=== PATIENT | female | born 1980 | race Caucasian/White ===

== ENCOUNTER 2021-06-27 12:21 | Emergency (ER) | payer BC, SELFPAY ==
--- NOTE | ~2021-06-27 | XR_ITS ---
EXAMINATION: XR forearm LT 2V, XR wrist LT min 3V DATE: 06/27/2021 13:46 INDICATION: Left wrist and forearm pain. TECHNIQUE: 1. AP an lateral views of the left forearm were obtained. Line 2. Dorsal palmar, lateral, oblique and ulnar deviated views of the left wrist were obtained. COMPARISON: none FINDINGS: Bone alignment is normal. No fracture. Joint spaces are normal. No erosions. Soft tissues are unremar kable. IMPRESSION: 1. Negative left wrist and forearm radiographs. Reviewed, dictated and finalized at location A. IMPRESSION: 1. Negative left wrist and forearm radiographs.
[2021-06-27 12:23] VITALS: BP 229/117; PULSE 81; RESP 18; TEMP 36.5; O2SAT 95
--- NOTE | 2021-06-27 13:44 | ED.GENADULT ---
HPI - General Adult General Chief complaint: Extremity Injury, Upper Stated complaint: left wrist pain Time Seen by Provider: 06/27/21 12:53 Source: patient and RN notes reviewed Mode of arrival: ambulatory History of Present Illness HPI narrative: 40-year-old female presented to the emergency department for evaluation of left wrist and left arm pain. Patient states while she was sleeping last night she believes her arm became entrapped in her headboard. When she woke up to use the restroom in the night she states she pulled out her arm and felt that she injured it. Patient does complain of increased pain with flexion and extension of the wrist. Patient does have some increased edema of the left hand. Patient denies any numbness or weakness. Patient has no wrist drop. Patient has strong adult day care worker of the left hand but believes it is worsened secondary to pain. Related Data Home Medications Medication Instructions Recorded Confirmed No Home Medications 06/27/21 Allergies Allergy/AdvReac Type Severity Reaction Status Date / Time penicillin V Allergy Other Verified 06/27/21 12:26 Review of Systems Review of Systems: CONSTITUTIONAL: Denies fever, chills, or sweats. EYES: Denies visual changes, redness, or discharge. ENT: Denies rhinorrhea, congestion, sore throat, or otalgia. CARDIOVASCULAR: Denies chest pain, palpitations, or edema. RESPIRATORY: Denies cough or dyspnea. GASTROINTESTINAL: Denies abdominal pain, nausea, vomiting, or diarrhea. GENITOURINARY: Denies dysuria or hematuria. SKIN: Denies rash or itching. MUSCULOSKELETAL: See HPI NEUROLOGIC: Denies headache, numbness, or weakness. Exam Narrative: APPEARANCE: Well appearing, no pain, no distress, well-nourished. HEAD: normocephalic, atraumatic. EYES: PERRLA/EOMI, conjunctivae clear. NOSE: Normal no drainage RESPIRATORY: Airway patent, respirations nonlabored. Clear to auscultation bilaterally, no rales, rhonchi, wheezing. CARDIOVASCULAR: Regular rate and rhythm without murmurs rubs or gallops. MUSCULOSKELETAL: Left wrist tenderness to palpation. Normal range of motion. Pulses intact. Normal cap refill. Neurologically intact. No wrist drop. NEURO: Alert. Cranial nerves II through XII intact. Grossly intact SKIN: Warm, dry. Normal Color Course Course Emergency Course: X-ray showed no acute fracture or dislocation. Patient was updated on the results of the x-rays and plan for treatment at home. Vital Signs Vital signs: Vital Signs Temperature 97.7 F 06/27/21 12:23 Pulse Rate 81 06/27/21 12:23 Respiratory Rate 18 06/27/21 12:23 Blood Pressure 229/117 H 06/27/21 12:23 Pulse Oximetry 95 06/27/21 12:23 Temperature 97.7 F 06/27/21 12:23 Pulse Rate 81 06/27/21 12:23 Respiratory Rate 18 06/27/21 12:23 Blood Pressure 229/117 H 06/27/21 12:23 Pulse Oximetry 95 06/27/21 12:23 Medical Decision Making Vital Signs Vital Signs: Vital Signs Temperature 97.7 F 06/27/21 12:23 Pulse Rate 81 06/27/21 12:23 Respiratory Rate 18 06/27/21 12:23 Blood Pressure 229/117 H 06/27/21 12:23 Pulse Oximetry 95 06/27/21 12:23 Temperature 97.7 F 06/27/21 12:23 Pulse Rate 81 06/27/21 12:23 Respiratory Rate 18 06/27/21 12:23 Blood Pressure 229/117 H 06/27/21 12:23 Pulse Oximetry 95 06/27/21 12:23 Imaging Data Radiologist's impression: Impressions Forearm X-Ray 06/27/21 13:56 IMPRESSION: 1. Negative left wrist and forearm radiographs. Wrist X-Ray 06/27/21 13:56 IMPRESSION: 1. Negative left wrist and forearm radiographs. Discharge Plan Discharge Clinical Impression: Arm contusion Patient Disposition: Home, Self-Care Condition: Stable Instructions: Antibiotic Form, Arm Pain (ED) Additional Instructions: Tylenol and ibuprofen for pain control. Have close follow-up with your primary care physician. If you have any worsening symptoms then please call or return to the
[2021-06-27] MEDS: HYDROcodone/acetaminophen (*CRX) 5-325 MG TABLET 1 TAB PO (15:25)
== END 2021-06-27 15:26 | disposition home or self-care (01) ==
PROVIDERS: Emergency Provider Emergency Medicine
DX: S60.212A Contusion of left wrist, initial encounter (principal); W23.1XXA Caught, crushed, jammed, or pinched between stationary objects, initial encounter
CPT/HCPCS: 73090; 73110; 99283; A9270

== ENCOUNTER 2022-10-01 11:26 | Observation (INO) | payer BC, SELFPAY ==
[2022-10-01] VITALS (17 sets, daily range): BP systolic 108–161; BP diastolic 56–94; PULSE 77–92; RESP 16–22; TEMP 36.4–37.2; O2SAT 99–100; BMI 34.0
--- NOTE | ~2022-10-01 | US_ITS ---
EXAMINATION: US pelvic complete w TV DATE: 10/01/2022 16:14 INDICATION: Heavy vaginal bleeding Comparison:No prior studies for comparison. TECHNIQUE: Multiple transabdominal and endovaginal sonographic images of the pelvis performed. FINDINGS: The uterus measures 7.4 x 6 cm. The endometrial complex measures 1.6 cm. The right ovary measures 2.9 x 2.1 x 2.8 cm and the left ovary measures 2.8 x 1.9 x 3 cm. There are small follicles in each ovary. Normal doppler signal in both ovaries. There is no free fluid in the pelvis. There are no abnormal masses seen on either side. IMPRESSION: 1. Endometrial thickening measuring 1.6 cm. Reviewed, dictated and finalized at location A.
[2022-10-01 11:40] LABS: Basophils Absolute Auto 0.1 K/mm3 (0.0-0.1); Basophils Percent Auto 0.4 % (0.2-1.2); Eosinophils Absolute Auto 0.2 K/mm3 (0-0.3); Eosinophils Percent Auto 1.7 % (0-4.4); Immature Granulocyte Absolute 0.11 K/mm3 (0.00-0.031); Lymphocytes Absolute Auto 4.14 K/mm3 (0.9-3.2); Lymphocytes Percent Auto 36.2 % (18.3-44.2); Mean Corpuscular HGB Conc 32.8 g/dl (32-36); Mean Corpuscular Hemoglobin 31.1 pg (26-34); Mean Corpuscular Volume 94.9 fl (80-100); Mean Platelet Volume 9.7 fl (7.4-10.4); Monocytes Absolute Auto 0.9 K/mm3 (0.1-0.6); Monocytes Percent Auto 7.6 % (2.6-8.5); Neutrophils Absolute Auto 6.1 K/mm3 (1.3-6.7); Neutrophils Percent Auto 53.1 % (45.5-73.1); Nucleated Red Blood Cells Perc 0.2 % (0.0-0.2); Platelet Count Result 404 k/mm3 (150-375); Red Blood Count 1.96 M/mm3 (4.2-5.4); Red Cell Distribution Width 14.8 % (11.5-14.5); White Blood Count 11.4 K/mm3 (4.5-10.0)
[2022-10-01 11:51] LABS: Alanine Aminotransferase 22 U/L (6-35); Albumin Level 3.6 g/dL (3.5-5.1); Alkaline Phosphatase 62 U/L (38-126); Anion Gap 7 mmol/L (8-16); Aspartate Amino Transferase 22 U/L (14-36); Bilirubin,Total 0.1 mg/dL (0.2-1.3); Blood Urea Nitrogen 8 mg/dL (7-17); Calcium 8.8 mg/dL (8.4-10.2); Carbon Dioxide 20 mmol/L (22-30); Chloride 109 mmol/L (98-107); Estimated CRCL calculation 110 ml/min; Estimated Glomerular Filt Rate > 60; Glucose 102 mg/dL (65-110); Potassium 3.2 mmol/L (3.4-5.0); Sodium 136 mmol/L (137-145)
[2022-10-01 11:52] LABS: Hemoglobin 6.1 g/dL (12.0-15.0)
[2022-10-01 11:53] LABS: Hematocrit 18.6 % (37.0-47.0)
[2022-10-01 11:55] LABS: Anisocytosis 1+ (NORMAL); Hypochromasia 1+ (NORMAL); Microcytosis 1+ (NORMAL); Platelet Estimate Increased (Adequate); Schistocytes None Seen (NORMAL)
--- NOTE | 2022-10-01 12:25 | ED.FEMALEGU ---
HPI - Female Genitourinary General Chief complaint: Vaginal Bleeding Stated complaint: vag bleed Time Seen by Provider: 10/01/22 12:20 Source: patient and family Mode of arrival: ambulatory Limitations: no limitations History of Present Illness HPI Narrative: 41 years old white female presented to the ED with 12 days of heavy vaginal bleeding. Associated with dizziness, intermittent blackout, numbness of the toes and fingers. Was seen [facility] days ago at [facility] for the same complaint and was discharged home at that time. Patient does not remember what was the instruction. History of hypertension and tobacco dependence. She Denies Drinking she uses marijuana daily. Currently her main complaint is numbness of the toes and fingers history of bilateral tubal ligation 25 years ago, section x2, appendectomy, her. Her periosd is 10 okay thank you been irregular in the last few months. Related Data Home Medications Medication Instructions Recorded Confirmed No Home Medications 06/27/21 Allergies Allergy/AdvReac Type Severity Reaction Status Date / Time No Known Allergies Allergy Verified 10/01/22 11:31 Exam : Speculum Exam - Vagina: normal appearance of the vagina and vaginal bleeding (No blood clots, 2 saturated long Q-tip were enough to dry the whole vaginal) Speculum Exam - Cervix: normal appearance of the cervix and Cervical os closed Course Consultations Consultation #1: Dr. Coburn 2 units of blood transfusion, Provera 10 mg twice daily Date: 10/01/22 Time: 14:55 Vital Signs Vital signs: Vital Signs Temperature 36.8 C 10/01/22 11:25 Pulse Rate 86 10/01/22 11:25 Respiratory Rate 18 10/01/22 11:25 Blood Pressure 108/56 L 10/01/22 11:25 Pulse Oximetry 100 10/01/22 11:25 Oxygen Delivery Room Air 10/01/22 11:25 Temperature 36.8 C 10/01/22 11:25 Pulse Rate 86 10/01/22 11:25 Respiratory Rate 18 10/01/22 11:25 Blood Pressure 108/56 L 10/01/22 11:25 Pulse Oximetry 100 10/01/22 11:25 Oxygen Delivery Room Air 10/01/22 11:25 MDM - Female Genitourinary MDM Narrative Medical decision making narrative: Syncope is patient presents with heavy vaginal bleeding and blood clot over the last 12 days, intermittent lightheadedness and syncope. History of section x2, bilateral tubal ligation. Physical exam was significant for pale skin Differential diagnosis dysfunctional uterine bleeding, miscarriage and anemia. Work-up today include CBC, CMP, urine showed hemoglobin of 6.1, potassium of 3.2 Dr. Coburn/the [employer] on-call requested Provera 10 mg twice a day and 2 units of blood transfusion Differential Diagnosis Differential diagnosis: Likely other (Dysfunctional uterine bleeding, anemia, miscarriage) Medical Records Attestation: I reviewed the patient's medical records. Lab Data Attestation: I reviewed the patient's lab results. 10/01/22 11:32 10/01/22 11:32 Labs: Lab Results 10/01/22 Range/Units 11:32 WBC 11.4 H (4.5-10.0) K/mm3 RBC 1.96 L (4.2-5.4) M/mm3 Hgb 6.1 L* (12.0-15.0) g/dL Hct 18.6 L* (37.0-47.0) % MCV 94.9 (80-100) fl MCH 31.1 (26-34) pg MCHC 32.8 (32-36) g/dl RDW 14.8 H (11.5-14.5) % Plt Count 404 H (150-375) k/mm3 MPV 9.7 (7.4-10.4) fl Immature Gran % (Auto) 1.0 H (0-0.5) % Neut % (Auto) 53.1 (45.5-73.1) % Lymph % (Auto) 36.2 (18.3-44.2) % [place] % (Auto) 7.6 (2.6-8.5) % Eos % (Auto) 1.7 (0-4.4) % Baso % (Auto) 0.4 (0.2-1.2) % Lymph # (Auto) 4.14 H (0.9-3.2) K/mm3 [place] # (Auto) 0.9 H (0.1-0.6) K/mm3 Eos # (Auto) 0.2 (0-0.3) K/mm3 Baso # (Auto) 0.1 (0.0-0.1) K/mm3 Abs Immat Gran (auto) 0.11 H (0.00-0.031) K/mm3 Absolute Neuts (auto) 6.1 (1.3-6.7) K/mm3 Absolute Nucleated RBC 0.0 (0.0-0.012) K/mm3 Nucleated RBC % 0.2 (0.0-0.2) % Platelet Estimate Increased (Adequate) Hypochromasia 1+ (NORMAL) Anisocytosis 1+ (NORM
[2022-10-01] MEDS: SODIUM CHLORIDE 0.9% IV 1,000 ML 999 ML IV CONT ×2 (12:46→14:08)
[2022-10-01] MEDS: SODIUM CHLORIDE 0.9% IV 250 ML 30 ML IV CONT (16:02)
[2022-10-01 16:27] LABS: Bacteria Urine None Seen /hpf; Need Manual Microscopic Reviewed; RBC Urine >100 /hpf (0-2); Squamous Epithelial Cell Urine None seen /hpf (Few)
[2022-10-01 16:30] LABS: Appearance Urine Slightly Cloudy (Clear); Bilirubin Urine Negative (Negative); Blood Urine 3+ (Negative); Color Urine Amber (Yellow); Glucose Urine UA Negative (Negative); Ketones Urine Negative (Negative); Leukocyte Esterase Ur Trace LEU/UL (Negative); Nitrate Urine Negative (Negative); Protein Urine 2+ mg/dL (Negative); Specific Grav Ur 1.015 (1.001-1.035); Urobilinogen Urine 0.2 mg/dL (<2.0)
[2022-10-01 16:33] LABS: Add Urine Microscopic? YES
[2022-10-01 16:44] LABS: Pregnancy On Board Control Positive; Urine Pregnancy Test Negative
--- NOTE | 2022-10-01 17:03 | PM.IMHP ---
H&P: HPI History of Present Illness Date/Time: 10/01/22 17:03 Chief Complaint: heavy vaginal bleeding Narrative: Linda is a 41yo P2003, LMP 09/23/22 who presented to the ER with multiple days of heavy vaginal bleeding. She reports her periods occur almost every other month. She reports one month they may be light and only 2-3 days, then the next month will be heavier. But she has never had any cycles as heavy as this one. She reports it has been heavy since the and she has been passing large clots as big as her fist. She reprots feeling terrible all week, but has children and sick mother to care for. She reports significant hot flashes and thought the bleeding was normal and likely bubba-menopausal. She denies any pain with this bleedign. She has a h/o and BTL. She was found to be severely anemic with hemoglobin of 6 in the ER. She feels tired, dizzy, weak, and was having palpitations. She reports that she fainted today with her boyfriend. She denies CP, SOB. 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 Review of Systems Constitutional: Constitutional: Denies chills, Reports fatigue, Denies fever(s) and Denies headache(s) Eyes: Eyes: Denies change in vision ENT: Reports dizziness and Denies headache(s) Cardiovascular: Cardiovascular: Denies chest pain, Reports syncope, Reports rapid heart rate, Reports lightheadedness and Denies dyspnea Respiratory: Respiratory: Denies cough and Denies dyspnea Gastrointestinal: Gastrointestinal: Denies abdominal pain and Denies change in stool character Genitourinary: Genitourinary: Reports abnormal menses, Reports menorrhagia, Denies dysmenorrhea, Denies pelvic pain, Denies vaginal discharge, Denies vaginal odor and Denies vaginal pruritus Neurologic: Reports dizziness, Reports syncope and Denies headache(s) Psychiatric: Psychiatric: Denies anxiety and Denies depression Meds Home Medications and Allergies Home Medications Medication Instructions Recorded Confirmed Type No Home Medications 06/27/21 History Allergies Allergy/AdvReac Type Severity Reaction Status Date / Time No Known Allergies Allergy Verified 10/01/22 11:31 Vital Signs Vital Signs - 24 hr 10/01/22 11:25 10/01/22 14:08 10/01/22 15:52 Temperature 98.2 F 98.8 F Pulse Rate 86 83 80 Respiratory Rate 18 17 16 Blood Pressure 108/56 L 109/59 L 132/72 Pulse Oximetry 100 99 100 Oxygen Delivery Room Air 10/01/22 15:59 10/01/22 16:08 Temperature 98.6 F Pulse Rate 82 77 Respiratory Rate 19 19 Blood Pressure 137/72 138/72 Pulse Oximetry 99 99 Oxygen Delivery Exam Const: General: cooperative, comfortable, no acute distress and obese Orientation/consciousness: patient oriented x3 Resp: Effort & Inspection: normal respiratory effort Auscultation: clear to auscultation bilaterally Cardio: Rate: regular rate GI: Inspection: normal to inspection GI Palp: No abdominal tenderness and Yes Soft to palpation Auscultation: normal bowel sounds : Speculum Exam - Vagina: normal appearance of the vagina and vaginal bleeding (~5cc noted in vault; no active bleeding) Speculum Exam - Cervix: normal appearance of the cervix Bimanual exam- vagina & uterus: non-tender and not enlarged Skin: General skin exam: normal color Neuro: General: patient oriented x3 Extrem: General: normal to inspection Psych: Appearance: grossly normal Affect: normal affect Attitude: cooperative H&P: Results Labs Labs: Short CBC 10/01/22 Range/Units 11:32 WBC 11.4 H (4.5-10.0) K/mm3 Hgb 6.1 L* (12.0-15.0) g/dL Hct 18.6 L* (37.0-47.0) % Plt Count 404 H (150-375) k/mm3 BMP 10/01/22 11:32 Sodium 136 L Potassium 3.2 L Chloride 109 H Carbon Dioxide 20 L BUN 8 Creatinine 0.60 L Glucose 102 Calcium 8.8 Liver Function 10/01/22 Range/Units 11:32 Total Bilirubin 0.1 L (0.2-1.3) mg/dL AST 22 (14-36) U/L ALT 22 (6-35) U/L Al
[2022-10-01] MEDS: NICOTINE (*PBKC) 21 MG PATCH 1 PATCH TRANSDERM (17:10)
--- NOTE | 2022-10-01 19:22 | ADMGEN ---
This patient, Linda Vogel, was admitted to 2 Medical Room 260-. Patient/family oriented to hospital policies and general routines including ID bracelet, bed and alarms, visiting hours, pain management, procedures, bathroom and other care routines, personal items, smoking policy, room service/diet, and visiting hours. Information on how to activate the Rapid Response Team has been discussed. Patient/Family are encouraged to report perceived risks to care and to ask questions if they do not understand what they are told or what they should do.
[2022-10-02] VITALS (11 sets, daily range): BP systolic 132–166; BP diastolic 66–83; PULSE 77–89; RESP 16–22; TEMP 36.4–36.9; O2SAT 99–100
[2022-10-02] MEDS: SODIUM CHLORIDE 0.9% IV 1,000 ML 125 ML IV CONT (00:30)
[2022-10-02 02:07] LABS: Basophils Percent Auto 0.4 % (0.2-1.2); Eosinophils Absolute Auto 0.1 K/mm3 (0-0.3); Eosinophils Percent Auto 1.4 % (0-4.4); Hematocrit 23.5 % (37.0-47.0); Hemoglobin 7.8 g/dL (12.0-15.0); Immature Granulocyte Absolute 0.05 K/mm3 (0.00-0.031); Immature Granulocyte Percent A 0.5 % (0-0.5); Lymphocytes Absolute Auto 2.71 K/mm3 (0.9-3.2); Lymphocytes Percent Auto 26.9 % (18.3-44.2); Mean Corpuscular HGB Conc 33.2 g/dl (32-36); Mean Corpuscular Hemoglobin 31.1 pg (26-34); Mean Corpuscular Volume 93.6 fl (80-100); Mean Platelet Volume 9.4 fl (7.4-10.4); Monocytes Absolute Auto 0.6 K/mm3 (0.1-0.6); Monocytes Percent Auto 5.5 % (2.6-8.5); Neutrophils Absolute Auto 6.6 K/mm3 (1.3-6.7); Neutrophils Percent Auto 65.3 % (45.5-73.1); Platelet Count Result 309 k/mm3 (150-375); Red Blood Count 2.51 M/mm3 (4.2-5.4); Red Cell Distribution Width 14.8 % (11.5-14.5); White Blood Count 10.1 K/mm3 (4.5-10.0)
[2022-10-02 02:23] LABS: Anion Gap 2 mmol/L (8-16); Blood Urea Nitrogen 6 mg/dL (7-17); Calcium 7.7 mg/dL (8.4-10.2); Carbon Dioxide 21 mmol/L (22-30); Chloride 112 mmol/L (98-107); Estimated CRCL calculation 131 ml/min; Estimated Glomerular Filt Rate > 60; Glucose 114 mg/dL (65-110); Potassium 3.2 mmol/L (3.4-5.0); Sodium 135 mmol/L (137-145)
[2022-10-02 07:14] LABS: Hematocrit 27.4 % (37.0-47.0)
[2022-10-02] MEDS: NIFEdipine 30 MG TAB.ER.24 60 MG PO (08:39)
[2022-10-02] MEDS: POTASSIUM CHLORIDE 20 MEQ PACKET (FOR LIQUID) 40 MEQ PO (08:39)
[2022-10-02] MEDS: NICOTINE (*PBKC) 21 MG PATCH 1 PATCH TRANSDERM (08:40)
--- NOTE | 2022-10-02 10:59 | PM.GYNPNOP ---
COMPUTER PROGRAMMING MANAGER - A/P Assessment and plan (1) Menorrhagia: Qualifiers: Menorrhagia type: with irregular cycle Qualified Code(s): N92.1 - Excessive and frequent menstruation with irregular cycle Code(s): N92.0 - Excessive and frequent menstruation with regular cycle Status: Acute (2) Anemia: Qualifiers: Anemia type: unspecified type Qualified Code(s): D64.9 - Anemia, unspecified Code(s): D64.9 - Anemia, unspecified Status: Acute Plan - s/p 3u pRBC - H/H glo appropriately to 9, vital stable, asymptomatic - will give venofer 500mg IV once now - Bleeding not fully improved with Provera 10mg BID-- will increase to 20mg BID - Will discharge home possibly later today if bleeding is better this evening; will schedule for HSC/D&C early this week Time Spent With Patient Time: Total time spent is greater than 50% in coordination of care (as documented) at patient's floor/unit and/or counseling patient: Time with patient: less than 15 minutes COMPUTER PROGRAMMING MANAGER- PN:Aren Post-Op Subjective Date/time seen: 10/02/22 08:55 Interval history: HD#2 Linda reports doing well today. No issues overnight, did get all 3 units of packed red blood cells. She has ambulated and denies symptoms of anemia; feels much better. Her bleeding is much machine pan greaser on the provera, but still passing clots that are about quarter to half dollar sized. She has voided, passing gas, and tolerated regular diet w/o issue. Review of Systems Review of Systems: All systems reviewed & are unremarkable except as noted in HPI and below (HPI) Constitutional: Constitutional: Denies chills, Denies fever(s) and Denies headache(s) Eyes: Eyes: Denies change in vision ENT: Denies dizziness and Denies headache(s) Cardiovascular: Cardiovascular: Denies chest pain and Denies rapid heart rate Respiratory: Respiratory: Denies cough Genitourinary: Genitourinary: Denies abnormal vaginal bleeding and Denies pelvic pain Neurologic: Denies dizziness and Denies headache(s) Exam Const: General: cooperative, healthy appearing, comfortable and no acute distress Orientation/consciousness: patient oriented x3 Resp: Effort & Inspection: normal respiratory effort Auscultation: clear to auscultation bilaterally Cardio: Rate: regular rate GI: Inspection: normal to inspection GI Palp: No abdominal tenderness and Yes Soft to palpation Auscultation: normal bowel sounds : Other: normal bleeding on pad with half dollar size clot passing with Valsalva Skin: General skin exam: normal color Neuro: General: patient oriented x3 Psych: Appearance: grossly normal Affect: normal affect Attitude: cooperative COMPUTER PROGRAMMING MANAGER - PN: Obj Data Vital Signs Vital Signs: Vital Signs - 24 hr 10/01/22 11:25 10/01/22 14:08 10/01/22 15:52 Temperature 98.2 F 98.8 F Pulse Rate 86 83 80 Respiratory Rate 18 17 16 Blood Pressure 108/56 L 109/59 L 132/72 Pulse Oximetry 100 99 100 Oxygen Delivery Room Air 10/01/22 15:59 10/01/22 16:08 10/01/22 17:08 Temperature 98.6 F 98.9 F Pulse Rate 82 77 79 Respiratory Rate 19 19 18 Blood Pressure 137/72 138/72 161/74 H Pulse Oximetry 99 99 100 Oxygen Delivery 10/01/22 17:58 10/01/22 18:08 10/01/22 18:52 Temperature 98.7 F Pulse Rate 92 86 81 Respiratory Rate 18 19 19 Blood Pressure 138/81 143/71 H 143/71 H Pulse Oximetry 99 100 99 Oxygen Delivery 10/01/22 19:30 10/01/22 19:25 10/01/22 19:28 Temperature 97.8 F 97.8 F Pulse Rate 82 82 Respiratory Rate 20 20 Blood Pressure 129/67 129/67 Pulse Oximetry 100 100 Oxygen Delivery Room Air 10/01/22 20:33 10/01/22 20:00 10/01/22 20:49 Temperature 98.6 F 98.5 F Pulse Rate 85 85 87 Respiratory Rate 22 H 22 H 22 H Blood Pressure 133/63 124/94 H Pulse Oximetry 100 100 100 Oxygen Delivery Room Air 10/01/22 21:50 10/01/22 22:50 10/01/22 23:49 Temperature 98.1 F 98.2 F 97.5 F L Pulse Rate 81 92 83 Respiratory Rate 22 H 20 20 Bloo
[2022-10-02] MEDS: SODIUM CHLORIDE 0.9% IV 1,000 ML 75 ML IV CONT (12:10)
[2022-10-02] MEDS: IRON SUCROSE COMPLEX 500 MG in SODIUM CHLORIDE 0.9% IV 250 ML 78.57 MG IVPB (12:11)
== END 2022-10-02 18:30 | disposition home or self-care (01) ==
LOC: ANHED 14:51 → ANH3MEDSUR 16:48 → ANH2MED 17:42
PROVIDERS: Preventive Medicine Aerospace Medicine; Admitting Provider Obstetrics & Gynecology; Emergency Provider Emergency Medicine; PCP Internal Medicine; Visit Provider Obstetrics & Gynecology
DX: N92.1 Excessive and frequent menstruation with irregular cycle (principal); D64.9 Anemia, unspecified; R55 Syncope and collapse; E87.6 Hypokalemia; R53.83 Other fatigue; R53.1 Weakness; R00.2 Palpitations; R93.89 Abnormal findings on diagnostic imaging of other specified body structures; R20.0 Anesthesia of skin; I10 Essential (primary) hypertension; F17.210 Nicotine dependence, cigarettes, uncomplicated; F12.90 Cannabis use, unspecified, uncomplicated
CPT/HCPCS: 36415; 36430; 76830; 76856; 80048; 80053; 81001; 81025; 85014; 85018; 85025; 86850; 86900; 86901; 86923; 87086; 87088; 96360; 96361; 96374; 99285; A9270; G0378; J1756; J7030; J7050; P9016

== ENCOUNTER 2022-10-06 00:26 | Day surgery (SDC) | payer BC, SELFPAY ==
[2022-10-04 11:19] VITALS: BMI 33.8
--- NOTE | 2022-10-04 11:23 | PC.NURSE ---
Report to the Outpatient Waiting Room, entrance under the green pavilion located off [facility], at time 1000 on date 10/06/22. Planned Procedure Time: 1200. Time changes happen often and if your time is changed the preop area will call you the afternoon before. - You and your visitor will be asked to self-screen and do not enter if you have any COVID symptoms. - A mask is optional within the hospital at this time. Patients may have clear liquids (water, carbonated beverages, clear teas, apple juice) until 3 hours prior to surgery with a maximum of 20 ounces. - No food from midnight until time of surgery Take the following medications with a SIP of water the morning of surgery: NIFEDIPINE DO NOT STOP ANY OF YOUR OTHER PRESCRIPTION MEDICATIONS PRIOR TO SURGERY?EXCEPT THE FOLLOWING Medications to discontinue per physician: N/A Date to take last dose: N/A Please no make-up, nail pakistani, hairspray, perfume, deodorant, or body powder the day of surgery. No jewelry (including any body piercings) or valuables the day of surgery, leave them at home. Please take a shower or bath the night before, or the morning of, surgery with an antibacterial soap. Wear comfortable, loose fitting clothing. - Jewelry must be removed prior to entering the operating room. Rings and piercings that are not removed may be cut off. - The hospital will not accept responsibility for valuables. - Please leave all valuables, including medications, at home the day of surgery. If you are going home after surgery, a licensed class c truck driver must drive you home. - NO public transportation without another adult if you receive anesthesia. - We recommend that an adult stay with you for 24 hours following discharge. - We also recommend that you do not drive, make important decision, drink alcoholic beverages, or take any drugs that were not prescribed by your health care provider for at least 24 hours after your discharge time. Follow any additional instructions given to you from your surgeon. If you or anyone in your household have experienced Covid symptoms in the past week, please notify your surgeon or the nurse liaison at the phone number below for possible testing. Telephone instructions given to PT - LISA MORATAYA and asked if any additional questions and then verbalized understanding. Patient advised to call surgeon office or pre surgery nurse liaison [phone] if any additional questions.
--- NOTE | 2022-10-06 07:49 | WPDHPUPDATE1 ---
History and Physical Update Update Date/Time: 10/06/22 07:49 History and Physical has been reviewed, including an updated exam of the patient. There are NO changes in the patient's condition. Risks, benefits, and alternatives have been discussed and questions answered. Patient agrees to proceed with hysteroscopy with D&C due to AUB.
[2022-10-06 11:01] VITALS: BP 118/77; PULSE 96; RESP 20; TEMP 36.6; O2SAT 100
[2022-10-06] MEDS: ACETAMINOPHEN 500 MG TABLET 1000 MG PO (11:04)
[2022-10-06] MEDS: LACTATED RINGERS 1,000 ML 30 ML IV CONT (11:30)
--- NOTE | 2022-10-06 12:00 | WPDANESEPPF ---
Anes - Initial Pre Proc Eval Procedure: Operation Date: 10/06/22 12:00 Proposed Procedures p Hysteroscopy, Dilation and Curettage - Rula Coburn MD Date/Time: 10/06/22 12:00 Surgeon: Rula Coburn MD Pre Op Diagnosis: abn uterine bleeding Patient Data Age: 41 Gender: F Height: 1.63 m Weight: 88.45 kg Last Vital Signs Temp 97.8 F 10/06/22 11:01 Pulse 96 10/06/22 11:01 Resp 20 10/06/22 11:01 BP 118/77 10/06/22 11:01 Pulse Ox 100 10/06/22 11:01 O2 Del Method Room Air 10/06/22 11:01 Allergies Allergy/AdvReac Type Severity Reaction Status Date / Time No Known Allergies Allergy Verified 10/06/22 10:59 Home Medications Medication Instructions Recorded Confirmed Type nifedipine 60 mg tablet,extended 60 mg PO DAILY 10/01/22 10/06/22 History release ferrous sulfate 325 mg (65 mg 325 mg PO DAILY #90 tabs 10/02/22 10/06/22 Rx iron) tablet medroxyprogesterone 10 mg tablet 20 mg PO BID 4 weeks #112 tabs 10/02/22 10/06/22 Rx (Provera) Patient hx anesthesia problems: none Family hx anesthesia problems: none Results Review: All pre-operative results and documents have been reviewed as part of the pre-operative evaluation. [facility] Family History Family History (Updated 10/01/22 @ 19:26 by Radha Kothari RN) Grandparent Acute myocardial infarction Cerebrovascular accident Chronic obstructive pulmonary disease Diabetes mellitus Hypertension Mother Chronic obstructive pulmonary disease Diabetes mellitus Hypertension Sibling Diabetes mellitus Hypertension Social History Social History Smoking packs per day: 0.5 Smoking cigarettes per day: 10.0 Years smoked: 27 Smoking pack-years: 13.50 Smoking status: Former smoker Tobacco type: cigarettes Alcohol intake: never Substance use: current Substance use type: marijuana Other substance usage details: SMOKES DAILY Lack of Transportation: No Lack of Food: Never True Current Housing: I Have Housing Concerned About Future Housing: No Difficulty Paying Gas/Electric Bills: No Difficulty Paying for Meds: No Currently Unemployed: No Education: Associate Degree Difficulty w/ Childcare or Family Care: No Living arrangements: with family Additional living arrangements comments: SON AND ROOMMATE Spiritual care concerns: No Anes - Eval Final PreProcedure Day of Procedure 10/06/22 12:00 Patient weight: obese Heart: regular rate and rhythm Lungs: clear to auscultation Airway: Mallampati scale class II Neurological: alert and oriented Last oral intake: >/= 8 hours ASA classification: III Emergent: no Anesthetic plan: proceed Anesthesia type and monitoring: general GIVS and standard monitoring Results Review: All pre-operative results and documents have been reviewed as part of the pre-operative evaluation. Informed Consent: The patient's anesthetic plan and its attendant risks and benefits were discussed with the patient/family/POA. Questions were solicited and answers provided to the satisfaction of the patient/family/POA.
--- NOTE | 2022-10-06 12:34 | W.PM.PROC2 ---
Procedure Note - Detailed Date of Procedure 10/06/22 Pre-op Diagnosis abnormal uterine bleeding Post-op Diagnosis Same Procedure Performed Hysteroscopy with D&C Surgeon Rula Coburn MD Anesthesia MAC Findings Uterus sounded to 9cm. Normal appearing cervix. Normal cavity with bilateral tubal ostia visualized. Diffusely thickened endometrium seen throughout the whole uterus. Good hemostasis at end of case. Description of Procedure Linda was taken to the operating room where she was placed under sedation without complications. She was then prepped and draped in the usual sterile fashion in the dorsal lithotomy position with her legs in low Pavan stirrups. A time-out was performed and no perioperative antibiotics were indicated. A bivalve speculum was placed within the vagina where the cervix was easily identified. The anterior lip of the cervix was grasped with a single-tooth tenaculum. The uterus was then sounded. The cervix was visually 1cm dilated and did not require dilation. The hysteroscope was advanced into the uterine cavity with the above findings noted. A curettage was then performed until a good uterine cry was felt throughout the uterus. The hysteroscope was once again advanced into the uterine cavity where it was noted to be normal. Good hemostasis was noted. All instruments were removed from the vagina. Sponge, lap, instrument, and needle counts were correct at the end of the procedure. Patient was awoken from anesthesia and taken to recovery with plans of same-day discharge home. Estimated Blood Loss 5 IV Fluids 700 (Fluid deficit: 70cc) Pathology Yes (endometrial curettings) Complications No immediate complications Condition Stable Disposition Same day [facility] Billing Surgery - Charge Forward: Surgery Billing
[2022-10-06 12:40] VITALS: BP 112/66; PULSE 74; RESP 16; O2SAT 100
[2022-10-06 13:25] VITALS: BP 121/76; PULSE 69; RESP 16
== END 2022-10-06 13:35 | disposition home or self-care (01) ==
PROVIDERS: PCP Internal Medicine; Visit Provider Obstetrics & Gynecology
PROC: 0U5B8ZZ Destruction of Endometrium, Via Natural or Artificial Opening Endoscopic (ICD-10-PCS; CPT 58563; principal; 2022-10-06 12:00)
DX: N93.9 Abnormal uterine and vaginal bleeding, unspecified (principal); Z87.891 Personal history of nicotine dependence; F12.90 Cannabis use, unspecified, uncomplicated; E66.9 Obesity, unspecified; Z68.33 Body mass index [BMI] 33.0-33.9, adult
CPT/HCPCS: 58558; 88305; A9270; J2250; J2405; J2704; J3010; J7120

== ENCOUNTER 2024-04-19 14:23 | Outpatient (CLI) | payer BC, SELFPAY ==
[2024-04-19 15:19] LABS: Basophils Absolute Auto 0.1 K/mm3 (0.0-0.1); Basophils Percent Auto 0.9 % (0.2-1.2); Eosinophils Absolute Auto 0.4 K/mm3 (0-0.3); Eosinophils Percent Auto 5.1 % (0-4.4); Hemoglobin 13.3 g/dL (12.0-15.0); Immature Granulocyte Absolute 0.02 K/mm3 (0.00-0.031); Immature Granulocyte Percent A 0.3 % (0-0.5); Lymphocytes Absolute Auto 2.56 K/mm3 (0.9-3.2); Lymphocytes Percent Auto 32.5 % (18.3-44.2); Mean Corpuscular HGB Conc 33.3 g/dl (32-36); Mean Corpuscular Volume 90.3 fl (80-100); Mean Platelet Volume 10.3 fl (7.4-10.4); Monocytes Absolute Auto 0.5 K/mm3 (0.1-0.6); Monocytes Percent Auto 6.7 % (2.6-8.5); Neutrophils Absolute Auto 4.3 K/mm3 (1.3-6.7); Neutrophils Percent Auto 54.5 % (45.5-73.1); Platelet Count Result 345 k/mm3 (150-375); Red Blood Count 4.43 M/mm3 (4.2-5.4); Red Cell Distribution Width 12.7 % (11.5-14.5); White Blood Count 7.9 K/mm3 (4.5-10.0)
[2024-04-19 17:13] LABS: Vitamin D 25 Hydroxy 19.9 ng/mL
[2024-04-21 10:28] LABS: Prolactin 4.4 ng/mL
== END 2024-04-19 14:24 | disposition home or self-care (01) ==
LOC: ANHLAB 14:24
PROVIDERS: PCP Internal Medicine; Visit Provider Nurse Practitioner Obstetrics & Gynecology
DX: N92.1 Excessive and frequent menstruation with irregular cycle (principal)
CPT/HCPCS: 36415; 82306; 84146; 84443; 85025

== ENCOUNTER 2024-05-09 10:33 | Outpatient (CLI) | payer BC, SELFPAY ==
--- NOTE | ~2024-05-09 | US_ITS ---
US pelvic complete w TV Ordering provider: Sofi Marie APRN History: . N92.1 - Excessive and frequent menstruation with irregula... . Comparison: None. Technique: Transabdominal and endovaginal ultrasound of the pelvis (Doppler ultrasound interrogation techniques used as needed for this exam.) FINDINGS: CERVIX: Nabothian cyst measuring 1 x 0.7 x 0.8 cm is seen. UTERUS: Measures 8.5x 4.9x 5.8 cm in length which is within normal limits and is anteverted. Multipl e hypoechoic complex area is suggestive of fibroids with the largest seen in the lower segment measur ing 1.7 x 0.1 0.3 x 1.7 cm. ENDOMETRIUM: Normal in thickness measuring 9 mm. No endometrial masses, cysts or fluid. CUL DE SAC: No free fluid. RIGHT OVARY: Normal in size measuring 3.4x 1.7x 3.6 cm. Normal echotexture. Doppler vascular flow pre sent. LEFT OVARY: Not demonstrated. ADNEXA: Normal. No mass. IMPRESSION: Multiple fibroids. Nabothian cyst of the cervix. Otherwise, normal pelvic ultrasound. Reviewed, dictated and finalized at location A. [employer] IMPRESSION: Multiple fibroids. Nabothian cyst of the cervix. Otherwise, normal pelvic ultra sound.
== END 2024-05-09 10:34 | disposition home or self-care (01) ==
PROVIDERS: PCP Internal Medicine; Visit Provider Nurse Practitioner Obstetrics & Gynecology
DX: D25.9 Leiomyoma of uterus, unspecified (principal); N88.8 Other specified noninflammatory disorders of cervix uteri; N92.1 Excessive and frequent menstruation with irregular cycle
CPT/HCPCS: 76830; 76856

== ENCOUNTER 2024-09-24 13:45 | Emergency (ER) | payer BC, SELFPAY ==
--- NOTE | ~2024-09-24 | XR_ITS ---
EXAM/PROCEDURE: XR chest 1V portable - 09/24/2024 16:31 CDT HISTORY: 43 years old Female with HTN TECHNIQUE: AP view(s) of the chest. COMPARISON: None available. FINDINGS: LUNGS/ PLEURA: No focal consolidation. No appreciable pneumothorax or large pleural effusion. HEART/ MEDIASTINUM: Heart appears normal in size. BONES: No acute osseous abnormality. OTHER: Visualized upper abdomen is unremarkable. IMPRESSION: No acute process. Reviewed, dictated and finalized at location A. IMPRESSION: No acute process.
--- NOTE | ~2024-09-24 | CT_ITS ---
CT OF left shoulder EXAMINATION: CT shoulder LT wo con DATE: 09/24/2024 16:48 INDICATION: Shoulder injury TECHNIQUE: Computed tomography (CT) of the left shoulder was performed without intravenous contrast. Automated exposure control and iterative reconstruction technique were employed. The dose-length prod uct was 471.49 mGy-cm. COMPARISON: None FINDINGS: Comminuted fracture of the greater tuberosity with 2 major osseous components the anterior fragment is displaced 5 mm superiorly and laterally. The inferior fragment is displaced 5 mm laterall y and posteriorly. No other fracture detected. Normal bone mineralization. No significant degenerativ e changes. Small os acromiale. Visualized lung parenchyma is clear. Soft tissue swelling over the del toid muscles and proximal biceps. Small glenohumeral effusion. IMPRESSION: Mildly displaced, comminuted fracture of the greater tuberosity of the left humerus. Reviewed, dictated and finalized at location K. IMPRESSION: Mildly displaced, comminuted fracture of the greater tuberosity of the left hum erus.
[2024-09-24 13:50] VITALS: BP 210/121; PULSE 78; RESP 20; TEMP 36.4; O2SAT 99
--- OUTSIDE RECORDS SUMMARY | 2024-09-24 13:50 | XMS_ITS | Data Portability ---
Author Organization [place] [facility] [employer], Main Office Address [address] [place] [address] Assessment Encounter Date Assessment Date Assessment LastModified by Organization Details LastModified Time 05/13/2022 05/13/2022 Increase nifedipine to 90 mg long-acting daily follow-up in 1 month [email or web address] Not available 05/13/2022 15:12:18 06/10/2022 06/10/2022 Will continue current therapy add losartan 25 mg a day see me in a month [email or web address] Not available 06/10/2022 13:02:22 07/22/2022 07/22/2022 Blood pressure looks good today see me back in 4 months discontinue losartan [email or web address] Not available 07/22/2022 14:04:28 Plan of Treatment Reminders Order Date Submit Date Provider Last Modified By Organization Details Last Modified Time Details Appointments None recorded. Lab None recorded. Referral None recorded. Procedures None recorded. Surgeries None recorded. Imaging None recorded. Medication Orders nifedipine ER 60 mg tablet,exte nded release 2022 023 [email or web address] [facility], [address] [place] [address], [address], 3 12:32:05 losartan 25 mg tablet 2022 023 [email or web address] 45 [facility], [address] [place] [address], [address], 3 11:06:53 Patient TargetsNo targets recorded. Patient InstructionsNo instructions recorded. Reason for Referral None Reported. Results Created Date Observation Date Name Description Value Unit Range Abnormal Flag Note LastModifiedBy Organization Detail LastModifiedTime 03/30/1903/30/2022 TSH thyroid-stim ulating hormone 2.680 uIU/m L 0.465- 4.680 Not Available [facility] (Lab) [address] [place], [address], 03/30/2022 21:05:25 03/30/19 23 03/30/2022 T3 FREE free T3 4.1 pg/mL 2.77-5 .27 Not Available [facility] (Lab) [address] [place], [address], 03/30/2022 20:28:14 03/30/19 23 03/30/2022 T4 FREE free T4 1.27 NG/dL 0.78-2 .19 Not Available [facility] (Lab) [address] [place], [address], 03/30/2022 20:28:08 03/30/19 23 03/30/2022 COMPR EHENS ANDREA METAB OLIC PANEL sodium 139 mmol/ L 137-14 5 Not Available [facility] (Lab) [address] [place], [address], 03/30/2022 20:12:50 03/30/19 23 03/30/2022 COMPR EHENS ANDREA METAB OLIC PANEL potassium 4.0 mmol/ L 3.5-5. 1 Not Available [facility] (Lab) [address] [place], [address], 03/30/2022 20:12:50 03/30/19 23 03/30/2022 COMPR EHENS ANDREA METAB OLIC PANEL chloride 108 mmol/ L 98-107 high Not Available [facility] (Lab) [address] [place], [address], 03/30/2022 20:12:50 03/30/19 23 03/30/2022 COMPR EHENS ANDREA METAB OLIC PANEL carbon dioxide 21 mmol/ L 22-30 low Not Available [facility] (Lab) [address] [place], [address], 03/30/2022 20:12:50 03/30/19 23 03/30/2022 COMPR EHENS ANDREA METAB OLIC PANEL anion gap 14.0 mmol/ L 14-22 Not Available [facility] (Lab) [address] [place], [address], 03/30/2022 20:12:50 03/30/19 23 03/30/2022 COMPR EHENS ANDREA METAB OLIC PANEL glucose 99 mg/dL 70-99 Not Available [facility] (Lab) [address] [place], [address], 03/30/2022 20:12:50 03/30/19 23 03/30/2022 COMPR EHENS ANDREA METAB OLIC PANEL BUN 14 mg/dL 8-19 Not Available [facility] (Lab) [address] [place], [address], 03/30/2022 20:12:50 03/30/19 23 03/30/2022 COMPR EHENS ANDREA METAB OLIC PANEL creatinine 0.53 mg/dL 0.66-1 .25 low Not Available [facility] (Lab) [address] [place], [address], 03/30/2022 20:12:50 03/30/19 23 03/30/2022 COMPR EHENS ANDREA METAB OLIC PANEL GFR >60 Refer ence Range : [place] ge GFR Healt hy Adult : >60 mL/mi n/1.7 3 m2 Chron ic Kidne y Disea se: 15-60 mL/mi n/1.7 3 m2 Kidne y Failu re: <15/m L/min /1.73 m2 www.n iddk. nih.g ov The MDRD study equat ion has not been valid ated in child luz marina <18 years of age; pregn ant women ; the elder ly >85 years of age; or in some racia l or ethni c subgr oups, such as Hispa nics. Outsi de the valid ated solis eters , estim ated GFR is less accur ate, requi ring clini dianne judgm ent on a case- by-ca se basis . Clini dianne inter preta tion for other races and ages must be made by the clini bong. The MDRD study equat ion has not been valid ated for the evalu ation of serum creat inine relat ed to nutri sergio l statu s or medic ation usage . For perso ns <18 years of age, a pedia tric GFR calcu lator is avail able on the [facility] websi te: https ://ww w.kid oleg.o rg/pr ofess ional s/kdo qi/gf r_cal culat or Not Available [facility] (Lab) [address] [place], [address], 03/30/2022 20:12:50 03/30/19 23 03/30/2022 COMPR EHENS ANDREA METAB OLIC PANEL alkaline phosphatase 85 U/L 38-126 Not Available [facility] (Lab) [address] [place], [address], 03/30/2022 20:12:50 03/30/19 23 03/30/2022 COMPR EHENS ANDREA METAB OLIC PANEL alanine aminotransfe rase 23 U/L 0-35 Not Available [facility] (Lab) [address] [place], [address], 03/30/2022 20:12:50 03/30/19 23 03/30/2022 COMPR EHENS ANDREA METAB OLIC PANEL aspartate aminotransfe rase 22 U/L 15-37 Not Available [facility] (Lab) [address] [place], [address], 03/30/2022 20:12:50 03/30/19 23 03/30/2022 COMPR EHENS ANDREA METAB OLIC PANEL bilirubin, total 0.50 mg/dL 0.20-1 .30 Not Available [facility] (Lab) [address] [place], [address], 03/30/2022 20:12:50 03/30/19 23 03/30/2022 COMPR EHENS ANDREA METAB OLIC PANEL calcium 9.3 mg/dL 8.4-10 .2 Not Available [facility] (Lab) [address] [place], [address], 03/30/2022 20:12:50 03/30/19 23 03/30/2022 COMPR EHENS ANDREA METAB OLIC PANEL total protein 7.3 g/dL 6.3-8. 2 Not Available [facility] (Lab) [address] [place], [address], 03/30/2022 20:12:50 03/30/19 23 03/30/2022 COMPR EHENS ANDREA METAB OLIC PANEL albumin 4.4 g/dL 3.4-5. 0 Not Available [facility] (Lab) [address] [place], [address], 03/30/2022 20:12:50 03/30/19 23 03/30/2022 COMPR EHENS ANDREA METAB OLIC PANEL globulin 2.9 g/dL 2.6-4. 2 Not Available [facility] (Lab) [address] [place], [address], 03/30/2022 20:12:50 03/30/1903/30/2022 COMPR EHENS ANDREA METAB OLIC PANEL A/G ratio 1.5 ratio 1.0-2. 0 Not Available [facility] (Lab) [address] [place], [address], 03/30/2022 20:12:50 03/30/1903/30/2022 LIPID PANEL cholesterol 184 mg/dL 140-19 9 NIH LEO NSUS RECOM MENDA TION FOR MAY STERO L: ADULT CHILD LOW RISK: <200 <170 BORDE RLINE : <200- 239 ----- HIGH RISK: >240 >200 Not Available [facility] (Lab) [address] [place], [address], 03/30/2022 20:12:39 03/30/1903/30/2022 LIPID PANEL triglyceride s 93 mg/dL 0-150 NIH LEO NSUS REPOR T RECOM MENDA TION FOR TRIGL YCERI NARAYAN: ADULT CHILD LOW RISK: <150 ----- BODER LINE: 150-1 99 ----- HIGH RISK: >200 ----- Not Available [facility] (Lab) [address] [place], [address], 03/30/2022 20:12:39 03/30/1903/30/2022 LIPID PANEL HDL cholesterol 51 mg/dL 40- Not Available [facility] (Lab) [address] [place], [address], 03/30/2022 20:12:39 03/30/1903/30/2022 LIPID PANEL LDL cholesterol, calculated 114 mg/dL 0-130 NIH LEO NSUS REPOR T RECOM MENDA TIONS FOR LDL: ADULT CHILD LOW RISK <130 <110 (OPTI MAL LDL) <100 ----- LEONELA RLINE : 130-1 59 ----- HIGH RISK: >160 >130 A TRIGL YCERI DE RESUL T >400 INVAL IDATE S THE CALCU LATIO N FOR LDL FRACT IONAT ION - THE LDL RESUL T WILL NOT BE REPOR BRANDON. Not Available [facility] (Lab) [address] [place], [address], 03/30/2022 20:12:39 03/30/1903/30/2022 CBC/C OMPLE TE BLD COUNT W/DIF F white blood cells 9.0 x10'3 /uL 4.2-10 .8 Not Available [facility] (Lab) [address] [place], [address], 03/30/2022 19:42:40 03/30/1903/30/2022 CBC/C OMPLE TE BLD COUNT W/DIF F red blood cells 4.69 x10'6 /uL 3.80-5 .20 Not Available [facility] (Lab) [address] [place], [address], 03/30/2022 19:42:40 03/30/1903/30/2022 CBC/C OMPLE TE BLD COUNT W/DIF F hemoglobin 13.8 g/dL 12.0-1 5.6 Not Available [facility] (Lab) [address] [place], [address], 03/30/2022 19:42:40 03/30/1903/30/2022 CBC/C OMPLE TE BLD COUNT W/DIF F hematocrit 41.1 % 35.7-4 5.7 Not Available [facility] (Lab) [address] [place], [address], 03/30/2022 19:42:40 03/30/1903/30/2022 CBC/C OMPLE TE BLD COUNT W/DIF F mean red cell volume 87.6 fL 82.0-9 9.0 Not Available [facility] (Lab) [address] [place], [address], 03/30/2022 19:42:40 03/30/1903/30/2022 CBC/C OMPLE TE BLD COUNT W/DIF F mean red cell hemoglobin 29.4 pg 27.0-3 3.0 Not Available [facility] (Lab) [address] [place], [address], 03/30/2022 19:42:40 03/30/1903/30/2022 CBC/C OMPLE TE BLD COUNT W/DIF F mean RBC HGB concentratio n 33.6 g/dL 31.0-3 6.0 Not Available [facility] (Lab) [address] [place], [address], 03/30/2022 19:42:40 03/30/1903/30/2022 CBC/C OMPLE TE BLD COUNT W/DIF F red cell distribution width 12.9 % 11.8-1 5.5 Not Available [facility] (Lab) [address] [place], [address], 03/30/2022 19:42:40 03/30/1903/30/2022 CBC/C OMPLE TE BLD COUNT W/DIF F platelets 318 x10'3 /uL 150-40 0 Not Available [facility] (Lab) [address] [place], [address], 03/30/2022 19:42:40 03/30/1903/30/2022 CBC/C OMPLE TE BLD COUNT W/DIF F mean platelet volume 10.7 fL 9.0-12 .4 Not Available [facility] (Lab) [address] [place], [address], 03/30/2022 19:42:40 03/30/1903/30/2022 CBC/C OMPLE TE BLD COUNT W/DIF F neutrophils 55.0 % 39.0-7 2.0 Not Available [facility] (Lab) [address] [place], [address], 03/30/2022 19:42:40 03/30/1903/30/2022 CBC/C OMPLE TE BLD COUNT W/DIF F lymphocytes 30.5 % 16.0-4 7.0 Not Available [facility] (Lab) [address] [place], [address], 03/30/2022 19:42:40 03/30/1903/30/2022 CBC/C OMPLE TE BLD COUNT W/DIF F monocytes 7.9 % 5.0-12 .0 Not Available [facility] (Lab) [address] [place], [address], 03/30/2022 19:42:40 03/30/1903/30/2022 CBC/C OMPLE TE BLD COUNT W/DIF F eosinophils 5.5 % 1.0-7. 0 Not Available [facility] (Lab) [address] [place], [address], 03/30/2022 19:42:40 03/30/1903/30/2022 CBC/C OMPLE TE BLD COUNT W/DIF F basophils 0.8 % 0.0-2. 0 Not Available [facility] (Lab) [address] [place], [address], 03/30/2022 19:42:40 03/30/1903/30/2022 CBC/C OMPLE TE BLD COUNT W/DIF F immature granulocytes 0.3 % 0.00-0 .50 Not Available [facility] (Lab) [address] [place], [address], 03/30/2022 19:42:40 03/30/1903/30/2022 CBC/C OMPLE TE BLD COUNT W/DIF F neutrophils, absolute count 4.93 x10'3 /uL 1.5-8. 0 Not Available [facility] (Lab) [address] [place], [address], 03/30/2022 19:42:40 03/30/1903/30/2022 CBC/C OMPLE TE BLD COUNT W/DIF F lymphocytes, absolute count 2.74 x10'3 /uL 1.07-3 .43 Not Available [facility] (Lab) [address] [place], [address], 03/30/2022 19:42:40 03/30/1903/30/2022 CBC/C OMPLE TE BLD COUNT W/DIF F monocytes, absolute count 0.71 x10'3 /uL 0.29-0 .99 Not Available [facility] (Lab) [address] [place], [address], 03/30/2022 19:42:40 03/30/1903/30/2022 CBC/C OMPLE TE BLD COUNT W/DIF F eosinophils, absolute count 0.49 x10'3 /uL 0.02-0 .53 Not Available [facility] (Lab) [address] [place], [address], 03/30/2022 19:42:40 03/30/1903/30/2022 CBC/C OMPLE TE BLD COUNT W/DIF F basophils, absolute count 0.07 x10'3 /uL 0.01-0 .08 Not Available [facility] (Lab) [address] [place], [address], 03/30/2022 19:42:40 03/30/1903/30/2022 CBC/C OMPLE TE BLD COUNT W/DIF F immature granulocytes ,absolute 0.03 x10'3 /uL 0.00-0 .05 Not Available [facility] (Lab) [address] [place], [address], 03/30/2022 19:42:40 03/30/1903/30/2022 CBC/C OMPLE TE BLD COUNT W/DIF F nucleated red blood cells 0.0 % -0 Not Available [facility] (Lab) [address] [place], [address], 03/30/2022 19:42:40 03/30/1903/30/2022 CBC/C OMPLE TE BLD COUNT W/DIF F NRBC# 0.00 x10'3 /uL Not Available [facility] (Lab) [address] [place], [address], 03/30/2022 19:42:40 03/30/19 23 elect rocbladimir diogr am No observ ation record ed. [id number] [address] [place], [place], [address], 05/05/2022 10:41:26 03/31/19 23 03/30/2022 johnny salinas am No observ ation record ed. [id number] Not Available 05/05/2022 10:41:26 10/02/19 23 10/01/2022 , nemesio kwong No observ ation record ed. [email or web address] [address], [place], [address], 01/21/2023 22:19:59 Result Notes None recorded. Problems Name Problem SNOMED Code Status Onset Date Resolution Date Notes Provider Name and Address Organization Details Recorded Time Dizziness 918235935 Active 2022 Not Available [facility] 10:40:23 Essential hypertension 51776763 Active 2022 Not Available [facility] 10:40:23 Problem Notes None recorded. Procedures Surgical History Date Name Laterality Status Provider Name and Address Organization Details Recorded Time 01/05/20 00 Tubal Ligation completed Not Available [facility] 05/05 10:39:54 01/08/19 99 section completed Not Available [facility] 03/2022 10:39:54 Oral surgery procedure completed Not Available [facility] 05/05/2022 10:39:54 [facility]end[facility] 10:39:54 Imaging Results None recorded. Procedure Notes None recorded. Medical Equipment None Reported. Allergies No known drug allergies Medications Name Sig Start Date Stop Date Status Note LastModified by Organization Details LastModified Time medroxyproge sterone 10 mg tablet TAKE 2 TABLETS BY MOUTH TWICE DAILY FOR 28 DAYS active Not Available Not Available No t Available ibuprofen 800 mg tablet TAKE 1 TABLET BY MOUTH THREE TIMES DAILY active Not Available Not Available No t Available hydrocodone 5 mg-acetamino phen 325 mg tablet TAKE 1 TO 2 TABLETS BY MOUTH EVERY 4 TO 6 HOURS NEEDED FOR PAIN. MAX OF 8 PER DAY 03/30 completed Not Available Not Available Not Available nifedipine ER 30 mg tablet,exten ded release Take 1 tablet every day by oral route. 06/10 completed Not Available Not Available Not Available amoxicillin 875 mg tablet TAKE 1 TABLET BY MOUTH EVERY 12 HOURS FOR 10 DAYS active Not Available Not Available No t Available losartan 25 mg tablet TAKE 1 TABLET BY MOUTH ONCE DAILY 07/22 completed Not Available Not Available Not Available nifedipine ER 60 mg tablet,exten ded release Take 1 tablet by mouth once daily-- PT NEEDS APPT 2022 active Not Available Not Available Not Avai lable FeroSul 325 mg (65 mg iron) tablet TAKE 1 TABLET BY MOUTH ONCE DAILY active Not Available Not Available No t Available Vitals Date Recorded Body mass index (BMI) Body height Heart rate Body temperature Body weight Systolic And Diastolic Provider Name and Address Organization Details Last Updated DateTime 3 32.6 kg/m2 165.1 cm 82 /min 98.7 [degF] 03559.1 g 218/114 mm[Hg] Not Available [facility] 3 10:40:04 Date Recorded Body mass index (BMI) Body height Heart rate Body temperature Body weight Systolic And Diastolic Provider Name and Address Organization Details Last Updated DateTime 3 32.6 kg/m2 165.1 cm 95 /min 97.9 [degF] 47408.1 g 140/92 mm[Hg] Not Available [facility] 3 10:40:04 Date Recorded Body height Body mass index (BMI) Body weight Body temperature Heart rate Systolic And Diastolic Provider Name and Address Organization Details Last Updated DateTime 3 165.1 cm 32.6 kg/m2 31567.1 g 99.1 [degF] 81 /min 156/98 mm[Hg] SANDI Hanna [facility] [employer] 3 10:58:21 Date Recorded Body height Body mass index (BMI) Body weight Body temperature Heart rate Systolic And Diastolic Provider Name and Address Organization Details Last Updated DateTime 3 165.1 cm 32.6 kg/m2 68574.1 g 98.7 [degF] 71 /min 158/96 mm[Hg] Freida looney RN [facility] [employer] 3 11:04:08 Date Recorded Body height Body mass index (BMI) Body weight Body temperature Heart rate Systolic And Diastolic Provider Name and Address Organization Details Last Updated DateTime 3 165.1 cm 32.9 kg/m2 43652.2 9 g 97.8 [degF] 93 /min 132/88 mm[Hg] SANDI Hanna [employer] [facility] [employer] [facility] 11:08:39 Social History Question Answer Notes LastModified by Organizat ion Details LastModified Time Tobacco Smoking Status Current Every Day Smoker SANDI Ac null, [facility] [employer] [facility] 06/10/2022 10:45:09 Do You Have An Advance Directive? No [id number] Information not available 05/05/2022 What Is Your Level Of Caffeine Consumption? Heavy [id number] Information not available 05/05/2022 In The 14 Days Before Symptom Onset, Have You Had Close Contact With A Laboratory-confir med COVID-19 While That Case Was Ill? No Information not available 06/10/2022 In The 14 Days Before Symptom Onset, Have You Had Close Contact With A Person Who Is Under Investigation For COVID-19 While That Person Was Ill? No Information not available 06/10/2022 What Type Of Diet Are You Following? REGULAR [id number] Information not available 05/05/2022 Which Illicit Or Recreational Drugs Have You Used? Marijuana Information not available 06/10/2022 What Is The Highest Grade Or Level Of School You Have Completed Or The Highest Degree You Have Received? [id number] Information not available 06/10/2022 Have There Been Any Changes To Your Family Or Social Situation? No Information no t available 06/10/2022 What Is The Fluoride Status Of Your Home? Fluoridated Information not available 06/10/2022 Are There Any Guns Present In Your Home? No Information not available 06/10/2022 Do You Use Insect Repellent Routinely? No Information not available 06/10/2022 Where Do You Live? [place] Information not available 06/10/2022 Do You Have A Medical Power Of Mixer Whipped Topping? No Information not available 06/10/2022 What Was The Date Of Your Most Recent Tobacco Screening? 07/22/2022 [email or web address] Information not available 07/22/2022 Do You Have Any Pets? Yes Information not available 06/10/2022 What Is Your Relationship Status? Single [id number] Information not available 05/05/2022 Do You Have Smoke And Carbon Monoxide Detectors In Your Home? Yes Information not available 06/10/2022 At What Age Did You Start Smoking Tobacco? 10 Information not available 06/10/2022 Are You Passively Exposed To Smoke? No Information no t available 06/10/2022 Are There Any Smokers In Your House? Yes Pt Smokes Information not available 06/10/2022 How Much Tobacco Do You Smoke? 0.5 PPD [id number] Information not available 05/05/2022 Do You Use Sunscreen Routinely? No Information not available 06/10/2022 Have You Recently Traveled Abroad? No Information not available 06/10/2022 Do You Have Any Dietary Restrictions? No Information not available 06/10/2022 Sex: Unknown Functional Status Question Answer Note LastModified by Organizat ion Details LastModified Time Do you use any illicit or recreational drugs? Yes Information not available 06/10/2022 Do you or have you ever used any other forms of tobacco or nicotine? No Information not available 06/10/2022 What is your level of alcohol consumption? None [id number] Information not available 05/05/2022 What is your occupation? [employer] Information not available 06/10/2022 What is your exercise level? Occasional moves around a lot at work [id number] Information not available 05/05/2022 Mental Status Question Answer Note LastModified by Organization D etails LastModified Time Do you feel stressed (tense, restless, nervous, or anxious, or unable to sleep at night)? [id number] Information not available 06/10/2022 Family History Relationship Description Onset Age of this Age Resolved Age Notes LastModified by Organization Details LastModified Time Maternal Grandmother Diabetes mellitus [id number] Not available 05/05/2022 10:39:55 Medical History Condition Response HEADACHES/MIGRAINES Y ANXIETY DISORDER Y HAVE YOU BEEN HOSPITALIZED OR SEEN IN [facility] IN THE PAST YEAR ? N DIZZINESS Y Gynecological HistoryNo gynecological history recorded. Obstetrics History GPAL:G 0 P 0 0 0 0 Immunizations Vaccine Type Date Status Note Provider Nam e and Address Organization Details Recorded Time COVID-19, mRNA, LNP-S, PF, 100 mcg/0.5mL dose or 50 mcg/0.25mL dose 08/28/2020 completed Not Available [facility] 3 10:41:18 COVID-19, mRNA, LNP-S, PF, 100 mcg/0.5mL dose or 50 mcg/0.25mL dose 07/31/2020 completed Not Available [facility] 3 10:41:18 Past Encounters Encounter ID Performer Location Encounter Start Date Encounter Closed Date Diagnosis/Indication Diagnosis SNOMED-CT Code Diagnosis ICD10 Code Diagnosis Note [id number] Tommy Betancourt MD [facility] Internal Med Jarodvi dotty [address] [place] [address] y , [place] [address] 03/30/2022 00:00:00 04/18/2022 14:06:25 [id number] Tommy Betancourt MD [facility] Internal Med [place] [address] [place] [address] [place] [address] 04/08/2022 00:00:00 04/08/2022 21:10:53 [id number] Tommy Betancourt MD [facility] Internal Med [place] [address] [place] [address] [place] [address] 05/13/2022 10:49:10 05/13/2022 11:47:55 Essential hypertension 28066879 I10 [id number] Tommy Betancourt MD [facility] Internal Med [place] [address] [place] [address] [place] [address] 06/10/2022 10:43:45 06/10/2022 11:23:33 Essential hypertension 55734442 I10 [id number] Tommy Betancourt MD [facility] Internal Med [place] [address] [place] [address] [place] [address] 07/22/2022 10:59:43 07/22/2022 11:25:12 Renewal of prescription 952951304 Z76.0 Essential hypertension 73607965 I10 Health Concerns Section Related Observation LastModified by Organization Detai ls LastModified Time None Recorded Concern Status LastModified by Organization Details LastModified Time None Recorded Advance Directives Directive N: Payers Insurance Date Sequence Insurance Name Policy Number Policy Duarte Covered Member ID Duarte Member ID Guarantor Name 09/16/2022 [facility] Linda Vogel SELF SELF Linda Vogel 11/22/2022 1 [employer] ([facility]) [id number] Linda Vogel [id number] Linda Vogel Notes Date Note Type Note Provider Name and Address Organization Details Recorded Time 05/13/2022 text/html Hypertension no headache no dizziness Tommy Betancourt MD [address], [place], [address], [employer] 05/13/2022 15:12:44 06/10/2022 text/html She has had some stress no SI or HI Tommy Betancourt MD [address], [place], [address], [employer] 06/10/2022 13:02:40 07/22/2022 text/html stop losartan because of heavy periods that were irregular 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
--- OUTSIDE RECORDS SUMMARY | 2024-09-24 13:50 | XMS_ITS | Data Portability ---
Author Organization [facility] Hailee AMAYAmisty Mccracken Address [address] [facility] [place] [address] Care Team Providers Care [facility] Director Name Role Phone TOMMY BETANCOURT Primary Care Provider Assessment Encounter Date Assessment Date Assessment LastModified by Organization Details LastModified Time 06/02/2023 06/02/2023 Low-salt diet low-fat diet follow-up in 1 month mammogram continue with current measures for hypertension nifedipine ER 30 mg daily anxiety conservative measures headaches since she has been out of her blood pressure medicine get records from her previous doctor [email or web address] Not available 06/05/2023 12:53:35 08/29/2023 08/29/2023 Increase nifedipine ER to 60 mg a day blood works been ordered nicotine patches have been ordered she will follow-up in 1 month increase nifedipine ER 60 mg a day blood work has been ordered nicotine patches have been ordered healthy lifestyle obesity handout she will follow up in 1 month healthy lifestyle obesity handout mammogram mammogram [email or web address] Not available 08/29/2023 22:10:17 Plan of Treatment Reminders Order Date Submit Date Provider Last Modified By Organization Details Last Modified Time Details Appointments None recorded. Lab lipid panel, serum 2023 024 [email or web address], [address], [address], [place], [address], 16:59:19 CBC w/ auto diff 2023 024 [facility], [address], [address], [place], [address], 4 16:59:19 CMP, serum or plasma 2023 024 [facility], [address] [place] [address], [address], [place], [address], 4 16:59:19 CMP, serum or plasma 2023 024 [facility], [address] [place] [address], [address], [place], [address], 4 16:59:19 lipid panel, serum 2023 024 [facility], [address] [place] [address], [address], [place], [address], 4 16:59:19 CBC w/ auto diff 2023 024 [facility], [address] [place] [address], [address], [place], [address], 4 16:59:19 Referral None recorded. Procedures None recorded. Surgeries None recorded. Imaging [facility], [email or web address] [address], [place], [address], 4 10:15:32 MAMMO, screening, bilateral 2023 024 [facility], [address], [place], [address], 4 11:40:02 Medication Orders nicotine 7 mg/24 hr daily transderma l patch 2023 024 [facility], [address] [place], [address], 4 13:56:37 nicotine 21 mg/24 hr daily transderma l patch [address] [facility] [place], [address], 4 13:56:37 nicotine 14 mg/24 hr daily transderma l patch [address] [facility] [place], [address], 4 13:56:37 nifedipine ER 60 mg tablet,ext ended release 24 hr [address] [facility] [place], [address], 4 13:56:37 nifedipine ER 30 mg tablet,ext ended release 24 hr [address] [facility] [place], [address], 4 13:51:00 Patient TargetsNo targets recorded. Patient Instructions Encounter Date Encounter Id Patient Instructions Last Modified By Organization Details Last Modified Time 08/29/2023 [id number] A healthy lifestyle: care instructions [email or web address] Not available 08/29/2023 13:56:37 Quitting Tobacco : Care Instructions [email or web address] Not available 08/29/2023 13:56:37 Reason for Referral None Reported. Results Created Date Observation Date Name Description Value Unit Range Abnormal Flag Note LastModifiedBy Organization Detail LastModifiedTime 05/10/1905/09/2024 US, pelvi s, compl ete No observ ation record ed. [facility] [address] [facility] [facility] [place] [address], [place], [address], 05/10/2024 23:18:59 Result Notes None recorded. Problems Name Problem SNOMED Code Status Onset Date Resolution Date Notes Provider Name and Address Organization Details Recorded Time Essential hypertension 58828803 Active 2023 ARSALAN Ac, [place] - [facility] 06/24/202 4 11:14:43 Smoker 25818863 Active 2023 João Jaeger MA null, [facility] 4 11:14:46 Problem Notes None recorded. Procedures Surgical History Date Name Laterality Status Provider Name and Address Organization Details Recorded Time Appendectomy completed Tamela Moran MA [facility] 06/02/2023 10:14:11 section completed Tamela Moran MA [facility] 06/02/2023 10:14:16 Dilation and Curettage completed Tamela Moran MA [facility] 06/02/2023 10:14:22 Imaging Results None recorded. Procedure Notes None recorded. Medical Equipment None Reported. Allergies No known drug allergies Medications Name Sig Start Date Stop Date Status Note LastModified by Organization Details LastModified Time nifedipine ER 30 mg tablet,exte nded release 24 hr Take 1 tablet by mouth once daily active Not Available Not Available No t Available medroxyprog esterone 10 mg tablet TAKE 2 TABLETS BY MOUTH TWICE DAILY FOR 28 DAYS active Not Available Not Available No t Available nicotine 14 mg/24 hr daily transdermal patch Apply 1 patch every day by transderm al route. 2023 active Not Available Not Available Not Avai lable ibuprofen 800 mg tablet TAKE 1 TABLET BY MOUTH THREE TIMES DAILY active Not Available Not Available No t Available amoxicillin 875 mg tablet TAKE 1 TABLET BY MOUTH EVERY 12 HOURS FOR 10 DAYS 08/28 completed Not Available Not Available Not Available nifedipine ER 60 mg tablet,exte nded release 24 hr Take 1 tablet by mouth once daily 2023 active Not Available Not Available Not Avai lable losartan 25 mg tablet TAKE 1 TABLET BY MOUTH ONCE DAILY active Not Available Not Available No t Available nicotine 21 mg/24 hr daily transdermal patch APPLY 1 PATCH TOPICALLY ONCE DAILY active Not Available Not Available No t Available nifedipine ER 60 mg tablet,exte nded release TAKE 1 TABLET BY MOUTH ONCE DAILY. PATIENT NEEDS APPOINTME NT active Not Available Not Available No t Available nicotine 7 mg/24 hr daily transdermal patch Apply 1 patch every day by transderm al route. 2023 active Not Available Not Available Not Avai lable FeroSul 325 mg (65 mg iron) tablet TAKE 1 TABLET BY MOUTH ONCE DAILY active Not Available Not Available No t Available Vitals Date Recorded Body height Body mass index (BMI) Body weight Heart rate Body temperature Oxygen saturation Oxygen saturation in Arterial blood by Pulse oximetry Systolic And Diastolic Provider Name and Address Organization Details Last Updated DateTime 4 165.1 cm 31.6 kg/m2 88873.5 5 g 75 /min 98.6 [degF] 98 % 98 % 160/86 mm[Hg] Tamela Moran MA [facility] 4 10:20:36 Date Recorded Body height Body mass index (BMI) Body weight Heart rate Oxygen saturation Oxygen saturation in Arterial blood by Pulse oximetry Systolic And Diastolic Provider Name and Address Organization Details Last Updated DateTime 4 165.1 cm 31.6 kg/m2 80450.5 5 g 75 /min 97 % 97 % 180/102 mm[Hg] Leny Luu MA [facility] 4 10:36:41 Social History Question Answer Notes LastModified by Organizat ion Details LastModified Time Tobacco Smoking Status Current Every Day Smoker Tamela Moran MA [facility], [facility] 06/02/2023 10:15:15 Are You Blind Or Do You Have Difficulty Seeing? No Information not available 06/02/2023 Are You Deaf Or Do You Have Serious Difficulty Hearing? No Information not available 06/02/2023 What Was The Date Of Your Most Recent Tobacco Screening? 06/02/2023 Information not available 06/02/2023 What Is Your Relationship Status? Information not available 06/02/2023 Do You Use Your Seat Belt Or Car Seat Routinely? Yes Information not available 06/02/2023 How Much Tobacco Do You Smoke? 0.5 PPD Information not available 06/02/2023 How Many Years Have You Smoked Tobacco? 32 Information not available 06/02/2023 Sex: Unknown Functional Status Question Answer Note LastModified by Organization D etails LastModified Time What is your level of alcohol consumption? None Information not available 06/02/2023 Are you able to care for yourself? Yes Information n ot available 06/02/2023 Mental Status Question Answer Note LastModified by Organization D etails LastModified Time Do you feel stressed (tense, restless, nervous, or anxious, or unable to sleep at night)? [id number] Information not available 06/02/2023 Family History Relationship Description Onset Age of this Age Resolved Age Notes LastModified by Organization Details LastModified Time Mother Depressive disorder [email or web address] Not available 2023 10:14:36 Mother Diabetes mellitus [email or web address] Not available 2023 10:14:46 Mother Hypertensive disorder [email or web address] Not available 2023 10:14:58 Sister Depressive disorder [email or web address] Not available 2023 10:14:36 Sister Diabetes mellitus [email or web address] Not available 2023 10:14:46 Sister Hypertensive disorder [email or web address] Not available 2023 10:14:58 Father Hypertensive disorder apaytonma Not available 2023 10:14:58 Medical History Condition Response Coronary Artery Disease N Other N High Blood Pressure Y Atrial Fibrillation N Kidney or Bladder Problems N Thyroid Problems N GI Problems N Depression N COPD N Blood Clots N Skin Problems N Anemia N Heart Attack ([place]) N Anxiety Disorder Y Diabetes N Muscle, Joint, or Bone Problems N Seizures/Epilepsy N Acid Reflux (GERD) N Cancer N Stroke N Asthma N Allergies N High Cholesterol N Hepatitis N Liver Disease N Headaches Y Heart Failure N Osteoporosis N Gynecological History Statement/Question Response Duration of Flow (days) 5 Flow Heavy Date of LMP 08/25/2023 LMP Definite Obstetrics History GPAL:G 0 P 0 0 0 0 Immunizations Vaccine Type Date Status Note Provider Nam e and Address Organization Details Recorded Time COVID-19, mRNA, LNP-S, PF, 100 mcg/0.5mL dose or 50 mcg/0.25mL dose 07/31/2020 completed ARSALAN Ac, [place] - [facility] 08/29/2023 11:16:38 COVID-19, mRNA, LNP-S, PF, 100 mcg/0.5mL dose or 50 mcg/0.25mL dose 08/28/2020 completed ARS[place]AN Ac[place] [facility] 08/29/2023 11:16:38 Past Encounters Encounter ID Performer Location Encounter Start Date Encounter Closed Date Diagnosis/Indication Diagnosis SNOMED-CT Code Diagnosis ICD10 Code Diagnosis Note [id number] Tommy Betancourt MD [facility] [place] [address] [place] [address] 06/02/2023 10:04:07 06/02/2023 11:25:39 Essential hypertension 69054375 I10 Screening mammography 24 385219 Z12.31 [id number] Tommy Betancourt MD [facility] [employer] - [place] [address] [place] [address] 08/29/2023 09:58:54 08/29/2023 11:12:25 Essential hypertension 97507728 I10 Smoker 18869053 F17.200 Obesity 731893845 E66.8 Screening mammography 24 257483 Z12.31 Health Concerns Section Related Observation LastModified by Organization Detai ls LastModified Time None Recorded Concern Status LastModified by Organization Details LastModified Time None Recorded Advance Directives Directive None Recorded Payers Insurance Date Sequence Insurance Name Policy Number Policy Duarte Covered Member ID Duarte Member ID Guarantor Name 01/04/2024 1 [id number] ([facility]) [id number] Linda Jaspreet [id number] Linda Jaspreet Notes Date Note Type Note Provider Name and Address Organization Details Recorded Time 4 text/html Ran out of her blood pressure medicines. Anxiety has been doing fine with conservative measures Tommy Betancourt MD Attn: [facility] [place], [address], [facility] [place] 06/05/2023 12:53:52 4 text/html Hypertension blood pressure is up hypertension blood pressure is up hypertension blood pressure is up asymptomatic asymptomaticObesity problems losing weight obesity problems withContinues to smoke continues to smoke Tommy Betancourt MD Attn: [address] [place], [address], [facility] [place] 08/29/2023 22:10:35 OBGyn Episode No OBEpisode recorded.
[2024-09-24 16:06] VITALS: BP 203/116; PULSE 69; RESP 20; O2SAT 97
--- NOTE | 2024-09-24 17:01 | ED_ITS ---
HPI - General Adult General Chief complaint: Extremity Injury, Upper Stated complaint: work note-left arm injury Time Seen by Provider: 09/24/24 14:52 History of Present Illness HPI narrative: 43-year-old female presented to the emergency department for evaluation for left shoulder injury. Patient reports Tuesday morning she was walking down stairs when she lost her balance ground but the banister with low after arm and felt a popping tearing in her left arm. Patient states since then she has pain in the left arm and does have some ecchymosis on the left arm as well. Patient reports he has not been taking her blood pressure medications for the last 6 weeks. Upon arrival patient's blood pressure was 210/121. Patient states this is the usual that has been for the last month. Patient denies any associated chest pain or shortness of breath. Related Data Home Medications ?Medication ?Instructions ?Recorded ?Confirmed ?Last Taken ?Type nifedipine 60 mg tablet,extended 60 mg PO DAILY 10/01/22 06/07/24 Unknown History release Allergies Allergy/AdvReac Type Severity Reaction Status Date / Time No Known Allergies Allergy Verified 09/24/24 16:11 Review of Systems 2 Review of Systems: All systems reviewed & are unremarkable except as noted in HPI and below PMFSH Past Medical History Medical History Blood transfusion, without reported diagnosis High blood pressure Ovarian cyst Surgical History Surgical History History of appendectomy Delivery by section TWIN H/O removal of cyst OVARIANS History of tubal ligation H/O gynecological procedure hysteroscopy with D&C Family History Family History Grandparent Acute myocardial infarction Cerebrovascular accident Chronic obstructive pulmonary disease Diabetes mellitus Hypertension Mother Chronic obstructive pulmonary disease Diabetes mellitus Hypertension Sibling Diabetes mellitus Hypertension Social History Social History Smoking packs per day: 0.5 Smoking cigarettes per day: 10.0 Years smoked: 27 Smoking pack-years: 13.50 Smoking status: Current some day smoker Tobacco type: cigarettes Alcohol intake: never Substance use: current Substance use type: marijuana Other substance usage details: SMOKES DAILY Lack of Transportation: No Lack of Food: Never True Current Housing: I Have Housing Concerned About Future Housing: No Difficulty Paying Gas/Electric Bills: No Difficulty Paying for Meds: No Currently Unemployed: No Education: Associate Degree Difficulty w/ Childcare or Family Care: No Living arrangements: with family Additional living arrangements comments: SON AND ROOMMATE Gender identity (if verbalized by the patient): Female Sexual Orientation (if Verbalized by the Patient): Straight or Heterosexual Spiritual care concerns: No Exam 2 Narrative: APPEARANCE: Uncomfortable appearing HEAD: normocephalic, atraumatic. EYES: PERRLA/EOMI, conjunctivae clear. NOSE: Normal no drainage EARS:TMS clear with good light reflex. THROAT: Pharynx clear, no exudate. NECK: Supple. No adenopathy, no masses. RESPIRATORY: Airway patent, respirations nonlabored. Clear to auscultation bilaterally, no rales, rhonchi, wheezing. CARDIOVASCULAR: Regular rate and rhythm without murmurs rubs or gallops. ABDOMINAL: Soft, nontender, nondistended, normal bowel sounds MUSCULOSKELETAL: Decreased range of motion of the left shoulder and tenderness to left shoulder and NEURO: Alert. Cranial nerves II through XII intact. Grossly intact SKIN: Warm, dry. Normal Color Course Vital Signs Vital signs: Vital Signs Temperature 97.6 F 09/24/24 13:50 Pulse Rate 78 09/24/24 13:50 Respiratory Rate 20 09/24/24 13:50 Blood Pressure 210/121 H 09/24/24 13:50 Pulse Oximetry 99 09/24/24 13:50 Oxygen Delivery Room Air 09/24/24 13:50 Temperature 97.6 F 09/24/24 13:50 Pulse Rate 69 09/24/24 16:06 Respiratory Rate 20 09/24/24 16:06 Blood Pressure 203/116 H 09/24/24 16:06 Pulse Oximetry 97 09/24/24 16:06 Oxygen Delivery Room Air 09/24/24 16:06 Medical Decision Making MDM Narrative Medical decision making narrative: 43-year-old female present to the emergency department for evaluation for left shoulder pain. Patient did have a fall which she attended acute herself from a injured her left shoulder. Patient is hypertensive and states she is always hypertensive, patient has not been taking her blood pressure medications for the last 6 weeks. Patient's blood pressure was treated in the emergency department. Patient is currently afebrile with no leukocytosis. Patient was treated with 2 doses of 10 mg IV hydralazine along with her p.o. nifedipine. Patient does have a humeral head fracture which is most likely secondary to a avulsion calls from a biceps injury. Patient was placed in a shoulder mobilizer and encouraged to have close follow-up with Orthopedics. I expressed my concern regarding the patient's blood pressure and patient is willing to take a prescription to be restarted on her I felt a pain but patient prefers to be discharged home and is unwilling to stay for further control over her blood pressure Differential Diagnosis Differential Diagnosis: Hypertensive urgency, hypertensive crisis, hypertension, shoulder strain, shoulder fracture, biceps tendon rupture Vital Signs Vital Signs: Vital Signs Temperature 97.6 F 09/24/24 13:50 Pulse Rate 78 09/24/24 13:50 Respiratory Rate 20 09/24/24 13:50 Blood Pressure 210/121 H 09/24/24 13:50 Pulse Oximetry 99 09/24/24 13:50 Oxygen Delivery Room Air 09/24/24 13:50 Temperature 97.6 F 09/24/24 13:50 Pulse Rate 69 09/24/24 16:06 Respiratory Rate 20 09/24/24 16:06 Blood Pressure 203/116 H 09/24/24 16:06 Pulse Oximetry 97 09/24/24 16:06 Oxygen Delivery Room Air 09/24/24 16:06 Lab Data Lab results reviewed: Yes I reviewed the patient's lab results. 09/24/24 17:27 09/24/24 17:05 Labs: Lab Results 09/24/24 09/24/24 Range/Units 17:05 17:27 WBC 9.5 (4.5-10.0) K/mm3 RBC 4.42 (4.2-5.4) M/mm3 Hgb 13.0 (12.0-15.0) g/dL Hct 38.1 (37.0-47.0) % MCV 86.2 (80-100) fl MCH 29.4 (26-34) pg MCHC 34.1 (32-36) g/dl RDW 13.2 (11.5-14.5) % Plt Count 267 (150-375) k/mm3 MPV 9.8 (7.4-10.4) fl Immature Gran % (Auto) 0.2 (0-0.5) % Neut % (Auto) 61.3 (45.5-73.1) % Lymph % (Auto) 28.5 (18.3-44.2) % [place] % (Auto) 6.5 (2.6-8.5) % Eos % (Auto) 3.2 (0-4.4) % Baso % (Auto) 0.3 (0.2-1.2) % Lymph # (Auto) 2.71 (0.9-3.2) K/mm3 [place] # (Auto) 0.6 (0.1-0.6) K/mm3 Eos # (Auto) 0.3 (0-0.3) K/mm3 Baso # (Auto) 0.0 (0.0-0.1) K/mm3 Abs Immat Gran (auto) 0.02 (0.00-0.031) K/mm3 Absolute Neuts (auto) 5.8 (1.3-6.7) K/mm3 Absolute Nucleated RBC 0.000 (0.0-0.012) K/mm3 Nucleated RBC % 0.0 (0.0-0.2) % PT 12.7 (11.1-14.7) Seconds INR 1.0 APTT 20.4 L (22.3-36.8) Seconds Sodium Cancelled Potassium Cancelled Chloride Cancelled Carbon Dioxide Cancelled Anion Gap Cancelled BUN Cancelled Creatinine Cancelled Estim Creat Clear Calc Cancelled Estimated GFR Cancelled Glucose Cancelled Calcium Cancelled Total Bilirubin Cancelled AST Cancelled ALT Cancelled Alkaline Phosphatase Cancelled Total Protein Cancelled Albumin Cancelled Imaging Data Radiologist's impression: Impressions Chest X-Ray 09/24/24 16:57 IMPRESSION: No acute process. Shoulder CT 09/24/24 17:22 IMPRESSION: Mildly displaced, comminuted fracture of the greater tuberosity of the left humerus. Discharge Plan Discharge Clinical Impression: Fracture of head of humerus Patient Disposition: Home Condition: Stable Instructions: Antibiotic Form, Arm Fracture in Adults (ED), Shoulder Immobilizer (ED) Additional Instructions: You preferred not to stay for further control of your blood pressure. You are being restarted on your nifedipine. You are being provided medications for pain control. Shoulder immobilizer as directed for pain control. He will need close follow-up with Orthopedics. Have close follow-up with your primary care physician in over to get better control of your blood pressure. Patient Language: Nigerian Prescriptions: New nifedipine 60 mg tablet extended release 60 mg PO DAILY 30 Days Qty: 30 0RF hydrocodone-acetaminophen 5-325 mg tablet 1 tablet PO Q12H PRN (Reason: pain) Qty: 14 0RF No Action nifedipine 60 mg tablet extended release 60 mg PO DAILY Follow-up/Referrals: Serafin,MD Tommy [Primary Care Provider] - Kodi Garcia MD [Physician] - Rosales Stout MD [Physician] -
[2024-09-24 17:31] LABS: Hematocrit 38.1 % (37.0-47.0); Hemoglobin 13.0 g/dL (12.0-15.0); Immature Granulocyte Percent A 0.2 % (0-0.5); Lymphocytes Absolute Auto 2.71 K/mm3 (0.9-3.2); Mean Corpuscular HGB Conc 34.1 g/dl (32-36); Mean Corpuscular Hemoglobin 29.4 pg (26-34); Mean Corpuscular Volume 86.2 fl (80-100); Nucleated Red Blood Cells Absolute Auto 0.000 K/mm3 (0.0-0.012); Nucleated Red Blood Cells Perc 0.0 % (0.0-0.2); Platelet Count Result 267 k/mm3 (150-375); Red Blood Count 4.42 M/mm3 (4.2-5.4); White Blood Count 9.5 K/mm3 (4.5-10.0)
[2024-09-24 17:35] LABS: Partial Thromboplastin Time 20.4 Seconds (22.3-36.8)
[2024-09-24] MEDS: KETOROLAC 15 MG/ML VIAL (*BKC) IV PUSH (17:38)
[2024-09-24 17:39] LABS: INR 1.0; Prothrombin Time 12.7 Seconds (11.1-14.7)
[2024-09-24] MEDS: ONDANSETRON INJ 4 MG/2 ML VIAL IV PUSH (18:13)
== END 2024-09-24 19:44 | disposition home or self-care (01) ==
PROVIDERS: Emergency Provider Emergency Medicine; PCP Internal Medicine
DX: S42.252A Displaced fracture of greater tuberosity of left humerus, initial encounter for closed fracture (principal); I10 Essential (primary) hypertension; T46.5X6A Underdosing of other antihypertensive drugs, initial encounter; Z91.128 Patient's intentional underdosing of medication regimen for other reason; W10.9XXA Fall (on) (from) unspecified stairs and steps, initial encounter
CPT/HCPCS: 36415; 71045; 73200; 80053; 85025; 85610; 85730; 96374; 96375; 96376; 99284; A9270; J0360; J1885; J2405